=== PATIENT | male | born 1970 | race Two or more races ===

== ENCOUNTER 2016-09-04 23:00 | Emergency (ER) | payer OTHER ==
[~2016-09-04] VITALS: Ht 172.7 cm; Wt 104.3 kg
[~2016-09-04 23:00] MED LIST: ASPI81TA10; BENA20TA4; GLIP-116; METF-316 PO; PROAIR HFA AER; SIMV-13 PO
[2016-09-04 23:08] VITALS: BP 146/82
[2016-09-05 00:11] LABS: Basophils # (auto) 0 uL; Basophils % (auto) 0.4 % (0.0-2.0); Eosinophils # (auto) 0.2 uL; Hematocrit 41.5 % (41.0-53.0); Lymphocytes # (auto) 2.1 uL; Lymphocytes % (auto) 26.2 % (10.0-50.0); Mean Corpuscular Hemoglobin 30.4 pg (28.0-32.0); Mean Corpuscular Hgb Conc. 33.7 g/dL (32.0-36.0); Mean Corpuscular Volume 90.3 fL (80.0-100.0); Mean Platelet Volume 8.3 fL (7.4-10.4); Monocytes # (auto) 0.5 uL; Monocytes % (auto) 5.9 % (0.0-12.0); Neutrophils # (auto) 5.3 uL; Neutrophils % (auto) 65.5 % (37.0-80.0); Platelet Count (auto) 245 10^3/uL (140-450); Red Cell Distribution Width 12.8 % (11.6-16.0); White Blood Cell 8.1 10^3/uL (4.4-10.8)
[2016-09-05 01:13] LABS: Albumin 3.8 g/dL (3.4-5.0); Alkaline Phosphatase 124 U/L (45-117); Anion Gap 12 (5-15); Aspartate Aminotransferase 8 U/L (15-37); BUN/Creatinine Ratio 21.8; Bilirubin, Total 0.7 mg/dL (0.2-1.0); Blood Urea Nitrogen 19 mg/dL (7-18); Calcium 9.2 mg/dL (8.5-10.1); Carbon Dioxide 26 mmol/L (21-32); Chloride 104 mmol/L (98-107); GFR African American 121 mL/min; GFR Non-African American 100 mL/min; Glucose 283 mg/dL (74-106); Potassium 4.3 mmol/L (3.5-5.1); Sodium 142 mmol/L (136-145); Total Protein 7.5 g/dL (6.4-8.2)
== END 2016-09-05 05:11 | disposition left against medical advice (07) ==
LOC: ER 23:02
DX: M25.512 Pain in left shoulder (principal); Z53.21 Procedure and treatment not carried out due to patient leaving prior to being seen by health care provider
CPT/HCPCS: 36415; 73030; 80053; 84484; 85025

== ENCOUNTER 2016-09-19 22:31 | Emergency (ER) | payer OTHER ==
[~2016-09-19] VITALS: Ht 172.7 cm; Wt 100.7 kg
[2016-09-19 22:54] VITALS: BP 92/73
== END 2016-09-20 01:04 | disposition left against medical advice (07) ==
LOC: ER 22:39
DX: M54.9 Dorsalgia, unspecified (principal); Z53.21 Procedure and treatment not carried out due to patient leaving prior to being seen by health care provider

== ENCOUNTER 2021-01-20 23:00 | Emergency (ER) | payer MEDICAID, OTHER ==
[~2021-01-20] VITALS: Ht 172.7 cm; Wt 109.8 kg
[~2021-01-20 23:00] MED LIST changes: +BENA20TA14; -BENA20TA4; -GLIP-116; +GLIP10TA9; -METF-316 PO; +METF-372 PO
[2021-01-20 23:59] LABS: Basophils # (auto) 0 10 ^3/uL (0-0.2); Basophils % (auto) 0.3 % (0.0-2.0); Eosinophils # (auto) 0 10 ^3/uL (0-0.8); Hematocrit 39.4 % (41.0-53.0); Hemoglobin 13.3 g/dL (13.5-17.5); Lymphocytes % (auto) 16.8 % (10.0-50.0); Mean Corpuscular Hemoglobin 29.8 pg (28.0-32.0); Mean Corpuscular Hgb Conc. 33.9 g/dL (32.0-36.0); Mean Corpuscular Volume 87.9 fL (80.0-100.0); Monocytes # (auto) 0.4 10 ^3/uL (0-1.3); Monocytes % (auto) 6.3 % (0.0-12.0); Neutrophils # (auto) 4.5 10 ^3/uL (1.6-8.6); Neutrophils % (auto) 76.6 % (37.0-80.0); Red Blood Cells 4.48 10^6/uL (4.5-5.90); Red Cell Distribution Width 12.9 % (11.8-14.3); White Blood Cell 5.9 10^3/uL (4.4-10.8)
[2021-01-21 00:16] LABS: Albumin 3.3 g/dL (3.4-5.0); Anion Gap 10 (5-15); Blood Urea Nitrogen 12 mg/dL (7-18); Calcium 8.1 mg/dL (8.5-10.1); Carbon Dioxide 23 mmol/L (21-32); Chloride 100 mmol/L (98-107); Glucose 180 mg/dL (74-106); Potassium 3.7 mmol/L (3.5-5.1); Sodium 133 mmol/L (136-145)
[2021-01-21 00:18] LABS: Alanine Aminotransferase 27 U/L (16-61); Aspartate Aminotransferase 17 U/L (15-37); BUN/Creatinine Ratio 16.9; GFR African American 150 mL/min; GFR Non-African American 124 mL/min
[2021-01-21 00:23] LABS: Alkaline Phosphatase 76 U/L (45-117); Bilirubin, Total 0.9 mg/dL (0.2-1.0); Total Protein 7.5 g/dL (6.4-8.2)
[2021-01-21 02:32] VITALS: BP 120/96
[2021-01-21] MEDS ORDERED: ACETAMINOPHEN 325 MG TAB PO ONE (03:00)
== END 2021-01-21 03:56 | disposition home or self-care (01) ==
LOC: ER 23:00
DX: U07.1 COVID-19 (principal); J12.82 Pneumonia due to coronavirus disease 2019; J45.909 Unspecified asthma, uncomplicated; E11.9 Type 2 diabetes mellitus without complications; E78.5 Hyperlipidemia, unspecified; I10 Essential (primary) hypertension
CPT/HCPCS: 36415; 71045; 80053; 82728; 83605; 83615; 83880; 84484; 85025; 87040; 87426; 93005

== ENCOUNTER 2021-01-26 22:50 | Inpatient (IN) | payer MEDICAID ==
[~2021-01-26] VITALS: Ht 172.7 cm; Wt 107.4 kg
[2021-01-26 23:30] LABS: Basophils # (auto) 0 10 ^3/uL (0-0.2); Basophils % (auto) 0.5 % (0.0-2.0); Eosinophils # (auto) 0 10 ^3/uL (0-0.8); Eosinophils % (auto) 0.4 % (0.0-7.0); Hematocrit 40.3 % (41.0-53.0); Hemoglobin 13.8 g/dL (13.5-17.5); Lymphocytes # (auto) 1.6 10 ^3/uL (0.4-5.4); Lymphocytes % (auto) 19.5 % (10.0-50.0); Mean Corpuscular Hemoglobin 29.7 pg (28.0-32.0); Mean Corpuscular Hgb Conc. 34.2 g/dL (32.0-36.0); Mean Corpuscular Volume 86.9 fL (80.0-100.0); Monocytes # (auto) 0.7 10 ^3/uL (0-1.3); Monocytes % (auto) 8.5 % (0.0-12.0); Neutrophils # (auto) 5.7 10 ^3/uL (1.6-8.6); Neutrophils % (auto) 71.1 % (37.0-80.0); Nucleated Red Blood Cells % 0.1 %; Red Blood Cells 4.63 10^6/uL (4.5-5.90); Red Cell Distribution Width 12.9 % (11.8-14.3)
[2021-01-26 23:50] LABS: Albumin 2.9 g/dL (3.4-5.0); BUN/Creatinine Ratio 27.5; Calcium 8.6 mg/dL (8.5-10.1); Potassium 3.9 mmol/L (3.5-5.1)
[2021-01-26 23:53] LABS: Bilirubin, Total 0.6 mg/dL (0.2-1.0); Total Protein 8.1 g/dL (6.4-8.2)
[2021-01-27] MEDS ORDERED: ACETAMINOPHEN 500 MG TAB PO ONE (04:00)
[2021-01-27] MEDS ORDERED: LORazepam 2MG/ML-1ML VIAL IV ONE ×2 (04:30→13:15)
[2021-01-27] MEDS ORDERED: DexAMETHasone SOD PHOS 10MG/1ML VIAL INJ IV ONE (04:30)
[2021-01-27] MEDS ORDERED: KETOROLAC TROMETH 30 MG/ML 1ML VIAL IV ONE (04:30)
[2021-01-27] MEDS ORDERED: SODIUM CHLORIDE 0.9% 1,000 ML IV ONE (04:30)
[2021-01-27 05:38] LABS: Basophils # (auto) 0 10 ^3/uL (0-0.2); Eosinophils # (auto) 0 10 ^3/uL (0-0.8); Eosinophils % (auto) 0.5 % (0.0-7.0); Monocytes # (auto) 0.3 10 ^3/uL (0-1.3); Red Cell Distribution Width 12.8 % (11.8-14.3); White Blood Cell 2.7 10^3/uL (4.4-10.8)
[2021-01-27 05:41] LABS: Basophils % (auto) 0.3 % (0.0-2.0); Lymphocytes # (auto) 0.4 10 ^3/uL (0.4-5.4); Lymphocytes % (auto) 15.2 % (10.0-50.0); Mean Corpuscular Hemoglobin 31.4 pg (28.0-32.0); Mean Corpuscular Volume 95.2 fL (80.0-100.0); Monocytes % (auto) 10.2 % (0.0-12.0); Neutrophils % (auto) 73.8 % (37.0-80.0); Nucleated Red Blood Cells % 0.9 %; Red Blood Cells 1.69 10^6/uL (4.5-5.90)
[2021-01-27 05:56] LABS: Hemoglobin 5.3 g/dL (13.5-17.5)
[2021-01-27] MEDS: IPRATROPIUM BROMIDE HFA AER IN SCH ×4 (06:00→22:00)
[2021-01-27] MEDS ORDERED: MORPHINE SULF INJ 2 MG/ML SYRINGE 1ML IV PRN (06:00)
[2021-01-27] MEDS ORDERED: ACETAMINOPHEN 500 MG TAB PO PRN ×2 (06:00→12:45)
[2021-01-27] MEDS ORDERED: NITROGLYCERIN 0.4 MG SL TAB SL PRN (06:00)
[2021-01-27] MEDS ORDERED: ONDANSETRON HCL 4 MG/2 ML VIAL IV PRN (06:00)
[2021-01-27] MEDS ORDERED: REMDESIVIR PER PHARMACY 0 ML IV SCH (06:00)
[2021-01-27] MEDS ORDERED: DEXTROSE (50%) 50ML SYRG IV PRN (06:00)
[2021-01-27 06:11] LABS: Albumin 2.8 g/dL (3.4-5.0); Anion Gap 5 (5-15); Blood Urea Nitrogen 25 mg/dL (7-18); Calcium 8.3 mg/dL (8.5-10.1); Carbon Dioxide 26 mmol/L (21-32); Chloride 100 mmol/L (98-107); Glucose 262 mg/dL (74-106); Magnesium 2.1 mg/dL (1.6-2.6); Potassium 4.2 mmol/L (3.5-5.1); Sodium 131 mmol/L (136-145)
[2021-01-27 06:18] LABS: Alanine Aminotransferase 41 U/L (16-61); Alkaline Phosphatase 84 U/L (45-117); Aspartate Aminotransferase 33 U/L (15-37); BUN/Creatinine Ratio 31.6; Bilirubin, Total 0.9 mg/dL (0.2-1.0); GFR African American 133 mL/min; GFR Non-African American 110 mL/min; Total Protein 7.8 g/dL (6.4-8.2)
[2021-01-27] MEDS: ACCU-CHEK COMFORT CURVE STRIP VI SCH ×4 (07:05→22:20)
[2021-01-27] MEDS: InsuLIN REG 1unit/0.01ml Soln (100units/ml) SC SCH ×4 (07:22→22:23)
[2021-01-27 07:36] LABS: INR 0.99 (0.9-1.15); Partial Thromboplastin Time 24.2 sec (23.0-31.2)
[2021-01-27] MEDS: cefTRIAXone 1GM/50ML D5W 50 ML IV SCH (08:35)
[2021-01-27] MEDS ORDERED: ASCORBIC ACID 500 MG TAB PO SCH (10:00)
[2021-01-27] MEDS: DexAMETHasone SOD PHOS 10MG/1ML VIAL INJ IV SCH (10:37)
[2021-01-27] MEDS: ZINC SULFATE 220mg CAP or TAB PO SCH (10:37)
[2021-01-27] MEDS: PANTOPRAZOLE 40 MG TAB PO SCH (10:37)
[2021-01-27] MEDS: AZITHROMYCIN 500MG/ 250ML 250 ML IV SCH (10:37)
[2021-01-27] MEDS: ASCORBIC ACID 1,000 MG TAB PO SCH (10:38)
[2021-01-27] MEDS: CHOLECALCIFEROL (VITD3) 2,000 UNIT CAP/TAB PO SCH (10:38)
[2021-01-27 10:48] LABS: Basophils # (auto) 0 10 ^3/uL (0-0.2); Basophils % (auto) 0.6 % (0.0-2.0); Eosinophils # (auto) 0 10 ^3/uL (0-0.8); Eosinophils % (auto) 0.4 % (0.0-7.0); Hematocrit 36.7 % (41.0-53.0); Hemoglobin 12.6 g/dL (13.5-17.5); Lymphocytes # (auto) 1.2 10 ^3/uL (0.4-5.4); Lymphocytes % (auto) 17.9 % (10.0-50.0); Mean Corpuscular Hgb Conc. 34.5 g/dL (32.0-36.0); Mean Corpuscular Volume 87.1 fL (80.0-100.0); Monocytes # (auto) 0.6 10 ^3/uL (0-1.3); Monocytes % (auto) 9.7 % (0.0-12.0); Neutrophils # (auto) 4.6 10 ^3/uL (1.6-8.6); Neutrophils % (auto) 71.4 % (37.0-80.0); Red Blood Cells 4.21 10^6/uL (4.5-5.90); Red Cell Distribution Width 12.8 % (11.8-14.3); White Blood Cell 6.4 10^3/uL (4.4-10.8)
[2021-01-27] MEDS ORDERED: POM IN (11:34)
[2021-01-27] MEDS ORDERED: ALBUAER3 IN (11:34)
[2021-01-27] MEDS ORDERED: INSU1INJ19 SC (11:51)
[2021-01-27] MEDS: guaiFENesin-DM 100/10mg/5ml SYR PO PRN ×2 (13:06→22:42)
[2021-01-27] MEDS ORDERED: REMDESIVIR 200 MG in NS 210ml LOADING DOSE ADULT IV ONE (15:00)
[2021-01-27] MEDS ORDERED: guaiFENesin-DM 100/10mg/5ml SYR PO ONE (18:00)
[2021-01-27 18:42] LABS: Urine Bacteria NONE SEEN /hpf (None Seen); Urine Blood Negative /uL (Negative); Urine Mucus FEW (None Seen); Urine Specific Gravity 1.038 (1.001-1.035); Urine WBC 6 /hpf (0 - 3)
[2021-01-27] MEDS: TEMAZEPAM 15 MG CAP PO PRN (22:42)
[2021-01-28 00:04] VITALS: BP 114/74
[2021-01-28 05:00] VITALS: BP 114/60
[2021-01-28] MEDS: ACCU-CHEK COMFORT CURVE STRIP VI SCH ×4 (06:27→21:49)
[2021-01-28] MEDS: InsuLIN REG 1unit/0.01ml Soln (100units/ml) SC SCH ×4 (06:30→21:56)
[2021-01-28 06:44] LABS: Basophils # (auto) 0 10 ^3/uL (0-0.2); Basophils % (auto) 0.2 % (0.0-2.0); Eosinophils # (auto) 0 10 ^3/uL (0-0.8); Eosinophils % (auto) 0.2 % (0.0-7.0); Hematocrit 34.8 % (41.0-53.0); Hemoglobin 12.3 g/dL (13.5-17.5); Lymphocytes # (auto) 1.3 10 ^3/uL (0.4-5.4); Mean Corpuscular Hemoglobin 30.4 pg (28.0-32.0); Mean Corpuscular Hgb Conc. 35.2 g/dL (32.0-36.0); Mean Corpuscular Volume 86.2 fL (80.0-100.0); Monocytes # (auto) 0.8 10 ^3/uL (0-1.3); Monocytes % (auto) 10.6 % (0.0-12.0); Neutrophils # (auto) 5.3 10 ^3/uL (1.6-8.6); Red Blood Cells 4.04 10^6/uL (4.5-5.90); Red Cell Distribution Width 13.1 % (11.8-14.3); White Blood Cell 7.4 10^3/uL (4.4-10.8)
[2021-01-28 07:04] LABS: Albumin 2.4 g/dL (3.4-5.0); Calcium 8.2 mg/dL (8.5-10.1); Potassium 4.2 mmol/L (3.5-5.1)
[2021-01-28 07:08] LABS: BUN/Creatinine Ratio 29.5; Bilirubin, Total 0.8 mg/dL (0.2-1.0); Total Protein 7.2 g/dL (6.4-8.2)
[2021-01-28] MEDS: ALBUTEROL SULF HFA 90MCG INH 200DOSE IN PRN ×2 (07:15→20:32)
[2021-01-28] MEDS: IPRATROPIUM BROMIDE HFA AER IN SCH ×3 (07:15→20:32)
[2021-01-28 09:00] VITALS: BP 121/65
[2021-01-28] MEDS: ZINC SULFATE 220mg CAP or TAB PO SCH (10:22)
[2021-01-28] MEDS: PANTOPRAZOLE 40 MG TAB PO SCH (10:22)
[2021-01-28] MEDS: AZITHROMYCIN 500MG/ 250ML 250 ML IV SCH (10:22)
[2021-01-28] MEDS: ASCORBIC ACID 1,000 MG TAB PO SCH (10:22)
[2021-01-28] MEDS: DexAMETHasone SOD PHOS 10MG/1ML VIAL INJ IV SCH (10:22)
[2021-01-28] MEDS: CHOLECALCIFEROL (VITD3) 2,000 UNIT CAP/TAB PO SCH (10:22)
[2021-01-28] MEDS: cefTRIAXone 1GM/50ML D5W 50 ML IV SCH (10:23)
[2021-01-28 13:00] VITALS: BP 137/83
[2021-01-28] MEDS ORDERED: REMDESIVIR 100mg 100 MG in SODIUM CHL 0.9% 230 ML IV SCH (15:00)
[2021-01-28 16:49] VITALS: BP 149/69
[2021-01-28] MEDS: guaiFENesin-DM 100/10mg/5ml SYR PO PRN (21:56)
[2021-01-28 22:00] VITALS: BP 142/80
[2021-01-29] MEDS: TEMAZEPAM 15 MG CAP PO PRN (00:35)
[2021-01-29 05:00] VITALS: BP 129/76
[2021-01-29] MEDS: ACCU-CHEK COMFORT CURVE STRIP VI SCH ×2 (06:19→11:18)
[2021-01-29] MEDS: InsuLIN REG 1unit/0.01ml Soln (100units/ml) SC SCH ×2 (06:20→11:20)
[2021-01-29 06:44] LABS: Hematocrit 36.5 % (41.0-53.0); Hemoglobin 12.7 g/dL (13.5-17.5); Mean Corpuscular Hgb Conc. 34.8 g/dL (32.0-36.0); Mean Corpuscular Volume 86.2 fL (80.0-100.0); Red Blood Cells 4.23 10^6/uL (4.5-5.90); White Blood Cell 7.1 10^3/uL (4.4-10.8)
[2021-01-29 07:04] LABS: BUN/Creatinine Ratio 37.5; Calcium 8.5 mg/dL (8.5-10.1)
[2021-01-29 07:06] LABS: Basophils % (manual) 0 (0.0-2.0); Blast Cells 0; Eosinophils % (manual) 0 (0-7); Metamyelocytes % 0; Myelocytes % 0; Promyelocytes % 0; Reactive Lymphocytes 0
[2021-01-29] MEDS: ALBUTEROL SULF HFA 90MCG INH 200DOSE IN PRN (07:41)
[2021-01-29] MEDS: IPRATROPIUM BROMIDE HFA AER IN SCH (07:41)
[2021-01-29 08:10] LABS: Band Neutrophils % (manual) 1; Lymphocytes % (manual) 39 (10.0-50.0); Monocytes % (manual) 4 (0-12)
[2021-01-29 09:00] VITALS: BP 145/71
[2021-01-29] MEDS: PANTOPRAZOLE 40 MG TAB PO SCH (10:30)
[2021-01-29] MEDS: ZINC SULFATE 220mg CAP or TAB PO SCH (10:30)
[2021-01-29] MEDS: DexAMETHasone SOD PHOS 10MG/1ML VIAL INJ IV SCH (10:30)
[2021-01-29] MEDS: ASCORBIC ACID 1,000 MG TAB PO SCH (10:31)
[2021-01-29] MEDS: CHOLECALCIFEROL (VITD3) 2,000 UNIT CAP/TAB PO SCH (10:32)
[2021-01-29] MEDS: cefTRIAXone 1GM/50ML D5W 50 ML IV SCH (10:34)
[2021-01-29] MEDS ORDERED: CHOL1CAP47 PO (11:21)
[2021-01-29] MEDS: AZITHROMYCIN 500MG/ 250ML 250 ML IV SCH (11:21)
[2021-01-29] MEDS ORDERED: ASCO500T11 PO (11:21)
[2021-01-29] MEDS ORDERED: AZIT500T66 PO (11:21)
[2021-01-29] MEDS ORDERED: DEX4T PO (11:21)
== END 2021-01-29 14:15 | disposition home or self-care (01) | DRG 137 ==
LOC: ER 22:50 → TELE 01-27 06:00 → TELE-EAST 01-27 18:02
PROVIDERS: ADMIT Nurse Practitioner; ATTEND Internal Medicine Pulmonary Disease
PROC: XW033E5 Introduction of Remdesivir Anti-infective into Peripheral Vein, Percutaneous Approach, New Technology Group 5 (ICD-10-PCS; principal; 2021-01-27)
DX: U07.1 COVID-19 (principal); J96.01 Acute respiratory failure with hypoxia; J12.82 Pneumonia due to coronavirus disease 2019; E11.9 Type 2 diabetes mellitus without complications; I10 Essential (primary) hypertension; E66.9 Obesity, unspecified; Z68.37 Body mass index [BMI] 37.0-37.9, adult
CPT/HCPCS: 36415; 36600; 71045; 80048; 80053; 81001; 82728; 82805; 82962; 83605; 83615; 83735; 83880; 84484; 85007; 85025; 85027; 85379; 85610; 85730; 86850; 86900; 86901; 87040; 87426; 93005; 94640; 96365; 96366; 96367; 96375; 96376; G0378; J0696; J1100; J1815; J1885

== ENCOUNTER 2021-02-15 05:26 | Emergency (ER) | payer MEDICAID ==
[~2021-02-15] VITALS: Ht 172.7 cm; Wt 111.1 kg
[~2021-02-15 05:26] MED LIST changes: +ALBUAER3 IN; +ASCO500T11 PO; +AZIT500T66 PO; +CHOL1CAP47 PO; +DEX4T PO; +INSU1INJ19 SC; +POM IN
[2021-02-15 07:36] VITALS: BP 160/75
[2021-02-15] MEDS ORDERED: KETOROLAC TROMETH 60MG/2ML VIAL IM ONE (08:30)
== END 2021-02-15 08:48 | disposition home or self-care (01) ==
LOC: ER 05:26
DX: K04.7 Periapical abscess without sinus (principal); J45.909 Unspecified asthma, uncomplicated; E11.9 Type 2 diabetes mellitus without complications; E78.5 Hyperlipidemia, unspecified; I10 Essential (primary) hypertension; Z79.899 Other long term (current) drug therapy; Z79.82 Long term (current) use of aspirin
CPT/HCPCS: 96372; 99283; J1885

== ENCOUNTER 2021-02-16 01:33 | Emergency (ER) | payer MEDICAID ==
[~2021-02-16] VITALS: Ht 172.7 cm; Wt 102.1 kg
[2021-02-16] MEDS ORDERED: ACETAMINOPHEN 325 MG TAB PO ONE (02:45)
[2021-02-16 04:45] VITALS: BP 131/69
[2021-02-16] MEDS ORDERED: KETOROLAC TROMETH 60MG/2ML VIAL IM ONE (05:00)
[2021-02-16] MEDS ORDERED: cefTRIAXone SOD 1,000 MG VL IM ONE (05:00)
== END 2021-02-16 05:51 | disposition home or self-care (01) ==
LOC: ER 01:36
DX: S02.5XXA Fracture of tooth (traumatic), initial encounter for closed fracture (principal); K02.9 Dental caries, unspecified; K59.00 Constipation, unspecified; E66.9 Obesity, unspecified; I10 Essential (primary) hypertension; J45.909 Unspecified asthma, uncomplicated; E11.9 Type 2 diabetes mellitus without complications; E78.5 Hyperlipidemia, unspecified; Z68.34 Body mass index [BMI] 34.0-34.9, adult; Z79.82 Long term (current) use of aspirin; Z79.4 Long term (current) use of insulin; Z79.899 Other long term (current) drug therapy; X58.XXXA Exposure to other specified factors, initial encounter; Y93.89 Activity, other specified; Y92.89 Other specified places as the place of occurrence of the external cause; Y99.8 Other external cause status
CPT/HCPCS: 96372; 99284; J0696; J1885

== ENCOUNTER 2021-05-24 11:22 | Emergency (ER) | payer MEDICAID ==
[~2021-05-24] VITALS: Ht 172.7 cm; Wt 108.0 kg
[2021-05-24 13:45] VITALS: BP 139/76
[2021-05-24] MEDS ORDERED: KETOROLAC TROMETH 60MG/2ML VIAL IM ONE (14:45)
== END 2021-05-24 15:24 | disposition home or self-care (01) ==
LOC: ER 11:22
DX: S32.019A Unspecified fracture of first lumbar vertebra, initial encounter for closed fracture (principal); J45.909 Unspecified asthma, uncomplicated; E11.9 Type 2 diabetes mellitus without complications; E78.5 Hyperlipidemia, unspecified; I10 Essential (primary) hypertension; M54.31 Sciatica, right side; X50.0XXA Overexertion from strenuous movement or load, initial encounter; Y93.89 Activity, other specified; Y92.89 Other specified places as the place of occurrence of the external cause; Y99.8 Other external cause status
CPT/HCPCS: 72100; 96372; 99283; J1885